=== PATIENT | female | born 1945 | race African-American/Black ===

== ENCOUNTER 2020-01-08 11:48 | Emergency (ER) | payer OTHER ==
[~2020-01-08] VITALS: Ht 142.2 cm; Wt 55.8 kg
[2020-01-08] MEDS ORDERED: IV NS 0.9% 1,000 ML BAG IV ONE (12:00)
--- NOTE | 2020-01-08 12:00 | NUR ---
JANES Banerjee FROM [facility] C/O WITNESSED SYNCOPAL EPISODE, -TRAUMA. PATIENT A/OX4, BREATHING EVEN AND UNLABORED, NO SOB NOTED, NEEDS ATTENDED, KEPT COMFORTABLE.
[2020-01-08 12:17] LABS: BASOPHILS % (AUTO) 0.6 % (0.0-2.0); HEMATOCRIT 39 % (33-45); HEMOGLOBIN 12.2 g/dL (11.5-14.8); LYMPHOCYTES % (AUTO) 15.4 % (20.0-44.0); MEAN CORPUSCULAR HGB CONC 32 g/dl (31.0-36.0); MEAN CORPUSCULAR VOLUME 96 fL (82-100); PLATELET COUNT (AUTO) 210 /CMM (150-450); RED BLOOD CELL COUNT(AUTO) 4.02 MIL/uL (4.0-5.2); WHITE BLOOD COUNT (AUTO) 6.6 K/uL (4.3-11.0)
[2020-01-08 12:18] LABS: NEUTROPHILS # (AUTO) 4.5 /CMM (1.8-8.9)
[2020-01-08 12:25] LABS: CALCIUM, SERUM 8.6 mg/dL (8.5-10.1); CREATININE 1.2 mg/dL (0.6-1.3); POTASSIUM 3.8 mmol/L (3.5-5.1)
[2020-01-08] MEDS ORDERED: LOSA25TA27 PO (12:34)
[2020-01-08] MEDS ORDERED: CALC-7 PO (12:34)
[2020-01-08] MEDS ORDERED: FURO-144 PO (12:34)
[2020-01-08] MEDS ORDERED: ASPI-1169 PO (12:34)
[2020-01-08] MEDS ORDERED: ATOR40TA PO (12:34)
[2020-01-08] MEDS ORDERED: CARV25TA2 PO (12:34)
[2020-01-08] MEDS ORDERED: POTA10TA10 PO (12:34)
[2020-01-08] MEDS ORDERED: POLY17PO4 PO (12:34)
[2020-01-08] MEDS ORDERED: GLIP5TAB13 PO (12:34)
[2020-01-08] MEDS ORDERED: METF-440 PO (12:34)
--- NOTE | 2020-01-08 13:21 | NUR ---
called [facility] [phone] ej. one of renteria md's will call us back.
[2020-01-08 13:23] VITALS: BP 102/48
--- NOTE | 2020-01-08 13:36 | NUR ---
ANKUSH TRINH [phone]
--- NOTE | 2020-01-08 14:41 | NUR ---
Pt Accepted to [facility] by Dr. Jhon Shaw Report to [phone]
--- NOTE | 2020-01-08 14:47 | NUR ---
REPORT GIVEN TO GIO RUSSO FOR SHRAVAN.
--- NOTE | 2020-01-08 15:11 | NUR ---
REPORT GIVEN TO [employer]. PATIETN A/OX4, BREATHING EVEN AND UNLABORED, ON O2 AT 2LPM VIA NC. VITALS STABLE. NEEDS ATTENDED. PATEINT LEFT THE FACILITY IN STABLE CONDITION.
== END 2020-01-08 15:14 | disposition short-term general hospital (02) ==
LOC: ER 11:48
DX: R55 Syncope and collapse (principal); R00.1 Bradycardia, unspecified; I95.9 Hypotension, unspecified; I50.9 Heart failure, unspecified; E87.2 Acidosis; I44.7 Left bundle-branch block, unspecified; E11.9 Type 2 diabetes mellitus without complications; Z88.8 Allergy status to other drugs, medicaments and biological substances; Z79.82 Long term (current) use of aspirin; Z79.899 Other long term (current) drug therapy; Z79.84 Long term (current) use of oral hypoglycemic drugs
CPT/HCPCS: 36415; 71045; 80048; 82962; 84484; 85025; 85730; 93005; 96360; 99285; J7030